=== PATIENT | female | born 2000 | race Caucasian/White ===

== ENCOUNTER 2020-04-02 01:57 | Outpatient (CLI) | payer OTHER, SELFPAY ==
[2020-04-04 18:52] LABS: Patient Race White; SARS-CoV-2 RNA Undetected (Undetected); SARS-CoV-2 Specimen Source Nasal
== END 2020-04-02 02:17 ==
PROVIDERS: PCP Pediatrics; Visit Provider Pediatrics
DX: Z11.59 Encounter for screening for other viral diseases (principal)
CPT/HCPCS: U0003